=== PATIENT | female | born 1985 | race Caucasian/White ===

== ENCOUNTER 2016-12-10 21:58 | Emergency (ER) | payer MEDICAID ==
[~2016-12-10] VITALS: Ht 152.4 cm; Wt 87.1 kg
[~2016-12-10 21:58] MED LIST: ALBU8.5H INH; CITA20TA9 PO; IBUP-1547 PO; LURA40TA PO; TOPI50TA57 PO; VITA-384 PO
--- OUTSIDE RECORDS SUMMARY | 2016-12-10 22:02 | XMS REPORT | Continuity of Care Document ---
Author Author [facility] Organization [facility] Address Unknown Phone Unavailable Care Team Providers Care Manager Actuarial Name Role Phone TONY HESS DO Primary Care Physician [phone] Insurance Providers Guarantor Margarita Mata Address [address] [place] [address] Email [email or web address] Payer [facility] Policy Number [id number] Subscriber's Name Margarita Mata Relationship 18 Self Effective Date 16 Expiration Date 16 Chief Complaint and Reason for Visit Chief Complaint Neuro Symptoms/Deficits Reason for Visit Migraine Anxiety Seizure disorder Problems Active Problems Medical Problem Onset Date Status Acute sinusitis Unknown Acute Bronchitis Unknown Acute Eustachian tube dysfunction Unknown Acute Eye irritation Unknown Acute Finger pain, right Unknown Acute Headache Unknown Acute Herpes genitalia Unknown Acute Pain, eye, right Unknown Acute Serous otitis media Unknown Acute Toothache Unknown Acute Upper respiratory infection Unknown Acute Wrist sprain Unknown Acute Past Problems Medical Problem Onset Date Anxiety Unknown Common cold Unknown Diarrhea Unknown Finger pain, right Unknown Gastroenteritis Unknown Migraine Unknown Migraine Unknown Pharyngitis Unknown Seizure disorder Unknown Tobacco abuse Unknown Wrist sprain Unknown Medications Current Home Medications Medication Dose Units Route Directions Days Qty Instructions Start Date Albuterol Sulfate (Proair Hfa 90 Mcg/Actuation) 8.5 Gm Hfa.aer.ad 2 Puff Inhalation Every 4 Hours as needed for Shortness Of Air/Wheezing 1 Inhaler Inhaler with spacer 08/03/16 Citalopram Hydrobromide (Citalopram Hbr) 20 Mg Tablet 20 Mg Oral Daily 05/08/16 Ibuprofen 800 Mg Tablet 800 Mg Oral Three Times A Day as needed for Pain 05/23/16 Lurasidone Hcl (Latuda) 40 Mg Tablet 40 Mg Oral Bedtime 10/21/16 Topiramate 50 Mg Tablet 50 Mg Oral Twice A Day 05/08/16 Vitamin C/Biotin (Lzhe-Ouzq-Mwkjr Gummies) 1 Each Tab.chew 2 Tab Oral Daily 10/21/16 Social History Social History Problem Response Recorded Date/Time Onset Date Status Hx Substance Use N REPORTS USING METH IN THE PAST 10/21/2016 8:41pm Not Applicable Not Applicable Hx Alcohol Use No 10/21/2016 8:41pm Not Applicable Not Applicable Tobacco Usage smoke 08/10/2015 12:05am Not Applicable Not Applicable Query Response Start Date Stop Date Smoking Status Current every day smoker Hospital Discharge Instructions No hospital discharge instructions. Plan of Care Discharge Date 10/21/16 10:05pm Disposition 01 DISCHARGED HOME, SELF-CARE Condition at Discharge Improved Instructions/Education Provided Anxiety (ED) Prescriptions See Medication Section Referrals TONY HESS DO Order Date: 1 Week Address: [place] [address] Note: Additional Instructions/Education You have been treated for anxiety, a migraine headache, and possible seizures. Your symptoms improved with this treatment. Your symptoms were most likely related to the anxiety. Follow up with Dr. Rankin as already scheduled. Follow up with your PCM for anxiety and migraines. Care Plan and Goals Physician Care Plan Problem: Anxiety Goal: Follow up with primary care provider Instructions: Take medications and follow care plan as discussed/written Functional Status No functional status results. Allergies, Adverse Reactions, Alerts Allergen Type Severity Reaction Status Last Updated Lamotrigine Allergy Unknown RASH Active 10/21/16 Immunizations Query Response on File Recorded Date/Time Hx Influenza Vaccination Y UNKNOWN 04/02/15 7:34pm Hx Tetanus, Diptheria, Pertussis Y 200904/02/15 7:34pm Hx Influenza Vaccination Y UNKNOWN 04/02/15 7:34pm Hx Tetanus, Diptheria, Pertussis Y 200904/02/15 7:34pm Influenza Vaccine Hx 06/201510/21/16 8:41pm Vital Signs Acute Vital Signs Vital Response Date/Time Temperature (Fahrenheit) 97.9 deg F (96.8 - 99.1) 10/21/2016 10:05pm Temperature (Calculated Celsius) 36.59190 degrees C (36.0 - 37.3) 10/21/2016 10:05pm Pulse Rate (adult) 71 bpm (60 - 100) 10/21/2016 10:05pm Respiratory Rate 16 breaths/min (10 - 20) 10/21/2016 10:05pm O2 Sat by Pulse Oximetry 99 % (90 - 100) 10/21/2016 10:05pm Blood Pressure 98/63 mm Hg 10/21/2016 10:05pm Height (Feet) 5 feet 10/21/2016 7:19pm Height (Inches) 0 inches 10/21/2016 7:19pm Weight (Kilograms) 88.000 kg 10/21/2016 7:19pm Body Mass Index (BMI) 37.0 10/21/2016 7:19pm Results Laboratory Results Test Name Result Units Flags Reference Collection Date/Time Result Date/ Time Comments White Blood Count 12.0 T/MM3 H 4.5-11.0 08/16/2016 11:39pm 08/16/2016 11 :56pm Red Blood Count 4.71 M/MM3 4.00-5.20 08/16/2016 11:39pm 08/16/2016 11: 56pm Hemoglobin 13.5 GM/DL 12-16 08/16/2016 11:39pm 08/16/2016 11:56pm Hematocrit 40.3 % 36-46 08/16/2016 11:39pm 08/16/2016 11:56pm Mean Corpuscular Volume 85.6 UM3 80-100 08/16/2016 11:39pm 08/16/2016 11:56pm Mean Corpuscular Hemoglobin 28.7 UUG 26-34 08/16/2016 11:39pm 2015 11:56pm Mean Corpuscular Hemoglobin Concent 33.5 GM/DL 31-37 08/16/2016 11:39pm 08/16/2016 11:56pm RDW Standard Deviation 44.3 FL 36.9-50.2 08/16/2016 11:39pm 08/16/2016 11:56pm Platelet Count 231 T/MM3 130-400 08/16/2016 11:39pm 08/16/2016 11:56pm Mean Platelet Volume 10.2 UM3 9.4-12.4 08/16/2016 11:39pm 08/16/2016 11 :56pm Neutrophils (%) (Auto) 63.0 % 33-66 08/16/2016 11:39pm 08/16/2016 11: 56pm Lymphocytes (%) (Auto) 30.3 % 23-45 08/16/2016 11:39pm 08/16/2016 11: 56pm Monocytes (%) (Auto) 5.3 % 0-9.0 08/16/2016 11:39pm 08/16/2016 11:56pm Eosinophils (%) (Auto) 0.7 % 0-4 08/16/2016 11:39pm 08/16/2016 11:56pm Basophils (%) (Auto) 0.2 % 0-2 08/16/2016 11:39pm 08/16/2016 11:56pm Immature Granulocyte % (Auto) 0.5 % 0.0-0.5 08/16/2016 11:39pm 2015 11:56pm Absolute Neutrophils (auto) 7.6 T/MM3 1.8-7.7 08/16/2016 11:39pm 2015 11:56pm Absolute Lymphocytes (auto) 3.7 T/MM3 1-4.8 08/16/2016 11:39pm 2015 11:56pm Absolute Monocytes (auto) 0.6 T/MM3 0-0.8 08/16/2016 11:39pm 2015 11:56pm Absolute Eosinophils (auto) 0.1 T/MM3 0-0.5 08/16/2016 11:39pm 2015 11:56pm Absolute Basophils (auto) 0.0 T/MM3 0-0.2 08/16/2016 11:39pm 2015 11:56pm Absolute Immature Granulocyte (auto 0.06 T/MM3 H 0.00-0.03 08/16/2016 11: 39pm 08/16/2016 11:56pm Icterus Index < 2 0-7 08/16/2016 11:39pm 08/17/2016 12:01am Chemistry Specimen Hemolysis < 15 0-25 08/16/2016 11:39pm 08/17/2016 12:01am 0-25: Specimen Exhibited No Hemolysis. Turbidity < 20 0-20 08/16/2016 11:39pm 08/17/2016 12:01am Sodium Level 145 MEQ/L H 134-144 08/16/2016 11:39pm 08/17/2016 12:01am Potassium Level 3.8 MEQ/L 3.6-5 08/16/2016 11:39pm 08/17/2016 12:01am Chloride Level 110 MEQ/L H 98-107 08/16/2016 11:39pm 08/17/2016 12:01am Carbon Dioxide Level 23 MEQ/L 22-30 08/16/2016 11:39pm 08/17/2016 12: 01am Anion Gap 12 MEQ/L 5-15 08/16/2016 11:39pm 08/17/2016 12:01am Blood Urea Nitrogen 10.0 MG/DL 7-17 08/16/2016 11:39pm 08/17/2016 12: 01am Creatinine 1.0 MG/DL 0.7-1.2 08/16/2016 11:39pm 08/17/2016 12:01am BUN/Creatinine Ratio 10 RATIO 6-26 08/16/2016 11:39pm 08/17/2016 12: 01am Glomerular Filtration Rate Calc 64 08/16/2016 11:39pm 08/17/2016 12 :01am Glucose Level 101 MG/DL 65-110 08/16/2016 11:39pm 08/17/2016 12:01am Calculated Osmolality 278 MOSM/KG 261-280 08/16/2016 11:39pm 2015 12:01am Calcium Level 9.5 MG/DL 8.4-10.2 08/16/2016 11:39pm 08/17/2016 12:01am Total Bilirubin 0.30 MG/DL 0.20-1.30 08/16/2016 11:39pm 08/17/2016 12: 01am Alkaline Phosphatase 81 U/L 38-126 08/16/2016 11:39pm 08/17/2016 12: 01am Total Protein 7.4 G/DL 6.3-8.2 08/16/2016 11:39pm 08/17/2016 12:01am Albumin 4.1 G/DL 3.5-5.0 08/16/2016 11:39pm 08/17/2016 12:01am Globulin 3.3 G/DL 2.4-3.6 08/16/2016 11:39pm 08/17/2016 12:01am Albumin/Globulin Ratio 1.2 RATIO 1.1-2.2 08/16/2016 11:39pm 08/17/2016 12:01am Aspartate Amino Transf (AST/SGOT) 17 U/L 14-36 08/16/2016 11:39pm 08/17 12:01am Alanine Aminotransferase (ALT/SGPT) 29 U/L 9-52 08/16/2016 11:39pm 12:01am Lipase 110 U/L 23-300 08/16/2016 11:39pm 08/17/2016 12:01am Urine Collection Type VOIDED-NOT CC-MIDSTR 08/16/2016 11:39pm 08/16 11:56pm Urine Color YELLOW YELLOW 08/16/2016 11:39pm 08/16/2016 11:56pm Urine Turbidity CLEAR CLEAR 08/16/2016 11:39pm 08/16/2016 11:56pm Urine Specific [place] >=1.030 H 1.015-1.025 08/16/2016 11:39pm 2015 11:56pm Urine pH 5.5 5.0-8.0 08/16/2016 11:39pm 08/16/2016 11:56pm Urine Leukocyte Esterase NEGATIVE NEGATIVE 08/16/2016 11:39pm 2015 11:56pm Urine Nitrite NEGATIVE NEGATIVE 08/16/2016 11:39pm 08/16/2016 11: 56pm Urine Protein NEGATIVE NEGATIVE 08/16/2016 11:39pm 08/16/2016 11: 56pm Urine Glucose (UA) NEGATIVE NEGATIVE 08/16/2016 11:39pm 08/16/2016 11 :56pm Urine Ketones NEGATIVE NEGATIVE 08/16/2016 11:39pm 08/16/2016 11: 56pm Urine Urobilinogen 0.2 EU/DL NORMAL 08/16/2016 11:39pm 08/16/2016 11: 56pm Urine Bilirubin NEGATIVE NEGATIVE 08/16/2016 11:39pm 08/16/2016 11: 56pm Urine Blood NEGATIVE NEGATIVE 08/16/2016 11:39pm 08/16/2016 11:56pm Urinalysis Comment MICROSCOPIC NOT IND. 08/16/2016 11:39pm 2015 11:56pm Procedures Procedure Status Date Provider(s) Airway inhalation treatment Completed 08/03/16 Emergency dept visit Completed 08/03/16 PREDNISONE, 10 MG TAB Completed 08/03/16 X-ray exam of abdomen Completed 08/16/16 Comprehen metabolic panel Completed 08/16/16 Urinalysis auto w/o scope Completed 08/16/16 Assay of lipase Completed 08/16/16 Complete cbc w/auto diff wbc Completed 08/16/16 Hydrate iv infusion add-on Completed 08/16/16 Ther/proph/diag inj iv push Completed 08/16/16 Tx/pro/dx inj new drug addon Completed 08/16/16 Emergency dept visit Completed 08/16/16 190179"INJECTION, KETOROLAC TROMETHAMINE, PER 15 MG" Completed 08/16/16 244197"INJECTION, ONDANSETRON HYDROCHLORIDE, PER 1 MG" Completed 08/16/16 [id number]"INFUSION, NORMAL SALINE SOLUTION , 1000 CC" Completed 08/16/16 Encounters Encounter Location Arrival/Admit Date Discharge/Depart Date Attending Provider Departed Emergency Room [facility] 10/21/16 7:19pm 10/21/16 10: 05pm IVAN RO DO Departed Emergency Room [facility] 08/16/16 11:10pm 08/17/16 12: 38am SCOTT MCGHEE MD Departed Emergency Room [facility] 08/03/16 5:13pm 08/03/16 7: 05pm GOGO BENITEZ MD Recent Diagnosis
[2016-12-10 22:16] VITALS: BP 108/70; PULSE 74; TEMP 98; O2SAT 98; Ht 152.4 cm; Wt 87.1 kg
[2016-12-10] MEDS ORDERED: [UNRECOGNIZED DRUG - CODE] TOP (22:21)
[2016-12-10] MEDS ORDERED: KETOROLAC 60mg/2ml INJECTION IM ONE (22:30)
[2016-12-10] MEDS ORDERED: PROCHLORPERAZINE 10mg/2ml INJECTION IM ONE (22:30)
[2016-12-10] MEDS ORDERED: HYDROMORPHONE 2mg/ml INJECTION IM ONE (22:30)
--- NOTE | 2016-12-10 22:30 | ERPDOC ---
Departure Disposition Decision Date: Dec 10, 2016 Disposition Decision Time: 22:31 Disposition: 01 DISCHARGED HOME, SELF-CARE Impression Impression Impression: Primary Impression: Viral upper respiratory illness Additional Impression: Migraine headache Migraine type: unspecified Status migrainosus presence: without status migrainosus Intractability: not intractable Qualified Codes: G43.909 - Migraine, unspecified, not intractable, without status migrainosus Severity: Moderate Condition: Improved Seen By: Physician only Referrals: TONY HESS DO (PCP) Patient Instructions: Upper Respiratory Infection (ED) Problems/Meds/Labs Reviewed?: Yes Medications reviewed and manag: Yes Additional Instructions: You have a viral upper respiratory infection, no antibiotics are needed Use Aleve-D one tablet twice daily +1 [id number]-[id number]-[id number] Aleve tablet twice daily for pain and sinus congestion It may also use Tylenol up to 1000 mg 4 times daily for pain Drink 2 quarts of fluid daily Decrease your smoking and exposure to cigarette smoke as much as possible Follow up care ordered?: Yes Mental Status: Alert Scripts Naproxen Sodium/P-Ephed HCl (Aleve-D Sinus & Cold Caplet) 1 Each Tab.er.12h 1 TAB PO BID for sinus congestion, #20 Prov: GOGO BENITEZ MD 12/10/16 HPI - Cough/URI General Chief Complaint: Cough,Fever,Flu,URI Stated Complaint: LOZADA,EARACHE,PAIN WHEN COUGHS Time Seen by Provider: 22:18 Source: patient, family Exam Limitations: no limitations HPI - Cough/URI Initial Comments Patient has 3 day history of right sinus pain, cough with yellow sputum, and worsening severe right-sided headache with photophobia and nausea. Has used Robitussin one time, this did not help her symptoms so she came to the ER. When asked why she did not use her prescription ibuprofen 800 that she has at home, she stated that it upsets her stomach. Is not other zark-qyb-waiqkbv medications , no decongestants, and has not contacted her primary physician. Occurred At: home Onset/Timing: Rapid Associated Symptoms: fever/chills, headache, nasal congestion, nasal drainage, sinus infection, DENIES: chest pain/soreness, cough, dizziness, earache, facial pain, lightheadedness, muscle aches, shortness of breath, sore throat, wheezing Hx of Similar Symptoms: Yes Allergies: Coded Allergies: lamotrigine (Verified Allergy, Unknown, RASH, 12/10/16) Past History Past Medical History ENMT: dental problems Neurological: migraines, seizures Psychological: bipolar, depression Surgical History General: other Reproductive/: , tubal ligation Family History Family PMH: FOUND: other Vaccines Hx Influenza Vaccination: Yes (UNKNOWN ) Hx Tetanus, Diptheria, Pertuss: Yes (2009) Social History Smoking Status: Current every day smoker Does patient use chewing tobac: No Second Hand Exposure: No Substance Use Type: does not use Alcohol Intake: none Sexuality: male partner Review of Systems Constitutional Constitutional: chills, fatigue, DENIES: anorexia, appetite decrease, appetite increase, dizziness, fever, night sweats, syncope, weakness Eyes General: photophobia ENMT Ears: DENIES: pain Hearing: DENIES: hearing loss, tinnitus Balance: DENIES: vertigo Sinuses: congestion, rhinorrhea Mouth/Throat: DENIES: change in swallowing, change in voice, hoarsness, painful swallowing, sore throat Cardiovascular Cardiac: DENIES: chest pain, dyspnea on exertion Rhythm/Rate: DENIES: irregular beat, palpitations, tachycardia Vascular: DENIES: pedal edema Pulmonary Respiratory: cough, sputum, DENIES: dyspnea, exposure to TB, hyperventilation, last PPD, pleuritic chest pain, pneumonia hx, recent risky activities, tachypnea GI Upper Abdomen: DENIES: dysphagia, heartburn/indigestion, nausea, pain, vomiting Lower Abdomen: DENIES: blood in stool, constipation, diarrhea, pain General: DENIES: burning, dysuria, frequency, pain, urgency Musculoskeletal General: DENIES: cramps, joint pain, joint swelling, pain, weakness Integumentary Skin: DENIES: rash, sores Neurological General: DENIES: headache, numbness, tingling, vertigo, weakness Physical Exam General General Nourishment: well nourished, well developed, appears stated age, no acute distress General Body Habitus: well groomed Vitals and Pain First Documented Vital Signs Date Time Temp Pulse Resp B/P Pulse Ox O2 Delivery O2 Flow Rate FiO2 12/10/16 22:16 98.0 74 17 108/70 98 Room Air Weight: Kilograms: 87.100 Height (feet): 5 Height (inches): 0 Triage Pain Scale: RN VS reviewed by Provider: Yes Normal Exams: Head: Normocephalic w/o trauma Eyes: Pupils are PERRLA w/ EOMI, No scleral icterus, irritation, or foreign bodies noted ENMT (brief) ENMT Brief: FOUND: TM clear, TM good light reflex, ear canals clear, mucosa moist, nasal erythema, nasal exudate, nasal swelling, normal dentition, normal tonsils, NOT FOUND: lesions, petechiae, pharnyx erythema, tonsillar deviation Comments Patient has no tenderness over the sinuses Neck (brief) Neck: FOUND: trachea midline, NOT FOUND: JVD, adenopathy, nuchal rigidity, spasm, tenderness, thyromegaly, tracheal deviation Respiratory (brief) Respiratory: FOUND: clear all cort[place], equal bilaterally, symmetrical, NOT FOUND : rales, tenderness, wheezes Cardiovascular (brief) Cardiac: FOUND: regular rate, regular rhythm, NOT FOUND: click, gallop, murmur , pedal edema Capillary Refill: <2 sec Pulses: all distal extremities, equal, strong Abdomen (brief) Abdominal Brief: FOUND: bowel normo active x4, soft, NOT FOUND: distended, hepatosplenomegaly, tender Lymphatic (brief) Lymphatic Brief: NOT FOUND: adenopathy, lymphedema Musculoskeletal (brief) Musculoskeletal Brief: NOT FOUND: deformity, loss of motion, spasm, tenderness Integumentary (brief) Integumentary Brief: FOUND: dry, pink, warm Neurologic (brief) Neurological Brief: FOUND: CN w/o gross def to obs, gait w/o gross def to obs, motor-no gross deficits, sensory-no gross deficits, NOT FOUND: ataxia Psychiatric (brief) Psychiatric Brief: FOUND: alert, attentive, normal affect, oriented Progress Results/Orders Orders Procedure Category Date Status Time Ketorolac (Toradol) PHA 12/10/16 In Process 22:30 Prochlorperazine PHA 12/10/16 In Process (Compazine) 22:30 Hydromorphone PHA 12/10/16 In Process (Dilaudid) 22:30 Medications Current ED Medications Ketorolac Tromethamine (Toradol) 60 mg O ONCE IM ; Start 12/10/16 at 22:30; Stop 12/10/16 at 22:31 Prochlorperazine Edisylate (Compazine) 10 mg O ONCE IM ; Start 12/10/16 at 22: 30; Stop 12/10/16 at 22:31 Hydromorphone HCl (Dilaudid) 1 mg O ONCE IM ; Start 12/10/16 at 22:30; Stop at 22:31 Progress Progress Patient appears to have a migraine headache secondary to viral upper respiratory infection. Patient given intramuscular medications in the ER for her headache, prescription for Aleve D to use twice daily in addition to one hcpg-qqo-empblif Aleve tablet for both headache as well as sinus congestion, and she is drink at least 2 quarts of fluid daily. GOGO BENITEZ MD Dec 10, 2016 22:30
[2016-12-10] MEDS ORDERED: NAPR1TAB21 PO (22:34)
[2016-12-10] MEDS ORDERED: PROC-14 PO (22:35)
[2016-12-10 23:02] VITALS: RESP 21
--- NOTE | 2016-12-10 23:27 | NUR ---
DEPARTURE PT COLLECTED BELONGINGS AND AMBULATED INDEPENDENTLY TO EXIT WITH SIGNIFICANT OTHER, GAIT STEADY.
== END 2016-12-10 23:27 | disposition home or self-care (01) ==
LOC: ED 21:58
DX: J06.9 Acute upper respiratory infection, unspecified (principal); B97.89 Other viral agents as the cause of diseases classified elsewhere; G43.909 Migraine, unspecified, not intractable, without status migrainosus; F17.200 Nicotine dependence, unspecified, uncomplicated
CPT/HCPCS: 96372; 99283; J0780; J1170; J1885

== ENCOUNTER 2016-12-27 22:28 | Emergency (ER) | payer MEDICAID ==
[~2016-12-27] VITALS: Ht 152.4 cm; Wt 89.1 kg
[~2016-12-27 22:28] MED LIST changes: -IBUP-1547 PO; +NAPR1TAB21 PO; +PROC-14 PO; -VITA-384 PO; +[UNRECOGNIZED DRUG - CODE] TOP
--- OUTSIDE RECORDS SUMMARY | 2016-12-27 22:33 | XMS REPORT | Continuity of Care Document ---
Author Author [facility] Organization [facility] Address Unknown Phone Unavailable Care Team Providers Care Flume Tender Name Role Phone TONY HESS DO Primary Care Physician [phone] Insurance Providers Guarantor GiovanniAzar calderonmijose a Fink Address [address] [phone] Email [email or web address] Payer [facility] Policy Number [id number] Subscriber's Name Margarita Mata Relationship 18 Self Effective Date 16 Expiration Date 16 Chief Complaint and Reason for Visit Chief Complaint Cough,Fever,Flu,URI Reason for Visit [id number] Migraine headache Problems Active Problems Medical Problem Onset Date [...] Unknown Gastroenteritis Unknown Migraine Unknown Migraine Unknown Migraine headache Unknown Pharyngitis Unknown Seizure disorder Unknown Tobacco abuse Unknown Viral upper respiratory illness Unknown Wrist sprain Unknown Medications Current Home Medications Medication Dose Units Route Directions Days Qty Instructions Start Date Albuterol Sulfate (Proair Hfa 90 Mcg/Actuation) 8.5 Gm Hfa.aer.ad 2 Puff Inhalation Every 4 Hours as needed for Shortness Of Air/Wheezing 1 Inhaler Inhaler with spacer 08/03/16 Citalopram Hydrobromide (Citalopram Hbr) 20 Mg Tablet 20 Mg Oral Daily 05/08/16 Lurasidone Hcl (Latuda) 40 Mg Tablet 40 Mg Oral Bedtime 10/21/16 Naproxen Sodium/P-Ephed Hcl (Aleve-D Sinus & Cold Caplet) 1 Each Tab.er.12h 1 Tab Oral Twice A Day for Sinus Congestion 20 12/10/16 Prochlorperazine Maleate (Compazine) 10 Mg Tablet 10 Mg Oral Four Times Daily for Acosta/Naus 30 Tablet 12/10/16 Tolnaftate (Lamisil Af) 113 Gm Powder 1 Dose Topically Daily Topiramate 50 Mg Tablet 50 Mg Oral Twice A Day 05/08/16 Past Home Medications Medication Directions Ordered Status Vitamin C/Biotin (Pgyh-Tdej-Xwquq Gummies) 1 Each Tab.chew, 2 Tab Oral Daily 10/21/16 Discontinued Social History Social History Problem Response Recorded Date/Time Onset Date Status Chewing Tobacco Status No 12/10/2016 10:21pm Not Applicable Not Applicable Hx Substance Use N REPORTS USING METH IN THE PAST 12/10/2016 10:21pm Not Applicable Not Applicable Hx Alcohol Use No 12/10/2016 10:21pm Not Applicable Not Applicable Tobacco Usage smoke 08/10/2015 12:05am Not Applicable Not Applicable Query Response Start Date Stop Date Smoking Status Current every day smoker Hospital Discharge Instructions No hospital discharge instructions. Plan of Care Discharge Date 12/10/16 11:27pm Disposition 01 DISCHARGED HOME, SELF-CARE Condition at Discharge Improved Instructions/Education Provided Upper Respiratory Infection (ED) Prescriptions See Medication Section Referrals TONY HESS Address: [address] [address] Additional Instructions/Education You have a viral upper respiratory infection , no antibiotics are needed Use Aleve-D one tablet twice daily +1 tawm-spn-wcwndei Aleve tablet twice daily for pain and sinus congestion It may also use Tylenol up to 1000 mg 4 times daily for pain Compazine 10 mg, one tablet up to 4 times daily as needed for headache or nausea Drink 2 quarts of fluid daily Decrease your smoking and exposure to cigarette smoke as much as possible Care Plan and Goals Physician Care Plan Problem: Viral URI, sinus pain, migraine headache Goal: Follow up with primary care provider Instructions: Take medications and follow care plan as discussed/written You have a viral upper respiratory infection, no antibiotics are needed Use Aleve-D one tablet twice daily +1 qyri-xeh-tofrwdq Aleve tablet twice daily for pain and sinus congestion It may also use Tylenol up to 1000 mg 4 times daily for pain Compazine 10 mg, one tablet up to 4 times daily as needed for headache or nausea Drink 2 quarts of fluid daily Decrease your smoking and exposure to cigarette smoke as much as possible Functional Status No functional status results. Allergies, Adverse Reactions, Alerts Allergen Type Severity Reaction Status Last Updated Lamotrigine Allergy Unknown RASH Active 12/10/16 Immunizations Query Response on File Recorded Date/Time Hx Influenza Vaccination Y UNKNOWN 04/02/15 7:34pm Hx Tetanus, Diptheria, Pertussis Y 200904/02/15 7:34pm Hx Influenza Vaccination Y UNKNOWN 04/02/15 7:34pm Hx Tetanus, Diptheria, Pertussis Y 200904/02/15 7:34pm Influenza Vaccine Hx 06/201512/10/16 10:21pm Vital Signs Acute Vital Signs Vital Response Date/Time Temperature (Fahrenheit) 98.0 deg F (96.8 - 99.1) 12/10/2016 10:16pm Temperature (Calculated Celsius) 36.28306 degrees C (36.0 - 37.3) 12/10/2016 10:16pm Pulse Rate (adult) 74 bpm (60 - 100) 12/10/2016 10:16pm Respiratory Rate 21 breaths/min (10 - 20) 12/10/2016 11:02pm O2 Sat by Pulse Oximetry 98 % (90 - 100) 12/10/2016 10:16pm Blood Pressure 108/70 mm Hg 12/10/2016 10:16pm Height (Feet) 5 feet 12/10/2016 10:16pm Height (Inches) 0 inches 12/10/2016 10:16pm Weight (Kilograms) 87.100 kg 12/10/2016 10:16pm Body Mass Index (BMI) 37.0 12/10/2016 10:16pm Results No known relevant diagnostic tests, laboratory data and/or discharge summary. Procedures Procedure Status Date Provider(s) Ther/proph/diag inj sc/im Completed 10/21/16 Ther/proph/diag inj sc/im Completed 10/21/16 Ther/proph/diag inj sc/im Completed 10/21/16 Emergency dept visit Completed 10/21/16 [id number]"INJECTION, KETOROLAC TROMETHAMINE, PER 15 MG" Completed 10/21/16 136564"INJECTION, LORAZEPAM, 2 MG" Completed 10/21/16 [id number] SELF ADMINISTERED) Completed 10/21/16 Mri brain stem w/o & w/dye Completed 10/31/16 GADAVIST 10ML SDV - Contrast,Gadavist 10ml Completed 10/31/16 Eeg awake and drowsy Completed 11/02/16 Encounters Encounter Location Arrival/Admit Date Discharge/Depart Date Attending Provider Departed Emergency Room [facility] 12/10/16 9:58pm 12/10/16 11: 27pm GOGO BENITEZ MD Registered Clinic [facility] 11/02/16 10:53am ANNA MARIE BYRD MD Registered Clinic [facility] 10/31/16 7:29am ANNA MARIE BYRD MD Departed Emergency Room [facility] 10/21/16 7:19pm 10/21/16 10: 05pm IVAN RO DO Recent Diagnosis
[2016-12-27 22:45] VITALS: Ht 152.4 cm; Wt 89.1 kg
[2016-12-27] MEDS ORDERED: IBUP-1547 PO (22:52)
--- NOTE | 2016-12-27 23:06 | ERPDOC ---
Departure Disposition Decision Date: Dec 27, 2016 Disposition Decision Time: 23:50 Disposition: 01 DISCHARGED HOME, SELF-CARE Impression Impression Impression: Primary Impression: Headache Qualified Codes: R51 - Headache Severity: Moderate Condition: Stable Seen By: Mid-level only Referrals: TONY HESS DO (PCP) Patient Instructions: Acute Headache (ED) Problems/Meds/Labs Reviewed?: Yes Medications reviewed and manag: Yes Additional Instructions: Go home and rest tonight. May repeat with Tylenol and/or Motrin in the morning. If you have not improved then please follow up with your primary care provider. Make sure you are drinking plenty of fluids tomorrow as well. Follow up care ordered?: Yes Mental Status: Alert, Oriented HPI - Headache General Chief Complaint: Headache Stated Complaint: HEADACHE,LOW HEART RATE Time Seen by Provider: 22:48 Source: patient Exam Limitations: no limitations HPI - Headache Initial Comments She was laying in the bathtub tonight and had onset of chills and headache. She has had the headache since then. Has not taken anything for it prior to coming to ER. Pain is on both sides of her temples and is constant. She denies any vomiting or fevers. Denies any blurred vision. Occurred At: home Onset: Rapid Duration: other (At 1999) Severity/Quality: moderate, constant, pressure Location: temporal (bilateral) Prior Headaches/Recent Trauma: no recent headache/trauma Associated Symptoms: facial pain, fever/chills (chills), DENIES: confusion, fatigue, flushing, loss of consciousness, nasal congestion, nasal drainage, nausea/vomiting, numbness in legs/feet, rash, seizures, sinus infection, stiff neck, vision changes, weakness Hx of Similar Symptoms: Yes Allergies: Coded Allergies: lamotrigine (Verified Allergy, Unknown, RASH, 12/27/16) Past History Past Medical History ENMT: dental problems Neurological: migraines, seizures Psychological: bipolar, depression Surgical History General: other Reproductive/: , tubal ligation Family History Family PMH: FOUND: other Vaccines Hx Influenza Vaccination: Yes (UNKNOWN ) Hx Tetanus, Diptheria, Pertuss: Yes (2009) Social History Does patient use chewing tobac: No Second Hand Exposure: No Substance Use Type: does not use Alcohol Intake: none Sexuality: male partner Review of Systems Constitutional Constitutional: chills, DENIES: appetite decrease, dizziness, fatigue, fever, weakness ENMT Ears: DENIES: drainage, pain Sinuses: DENIES: congestion, rhinorrhea Mouth/Throat: DENIES: painful swallowing, scratchy throat, sore throat Cardiovascular Cardiac: DENIES: chest pain, dyspnea on exertion, orthopnea Rhythm/Rate: DENIES: irregular beat, palpitations Pulmonary Respiratory: DENIES: cough, dyspnea, sputum, tachypnea GI Upper Abdomen: DENIES: nausea, pain, vomiting Lower Abdomen: DENIES: constipation, diarrhea, pain Integumentary Skin: DENIES: rash Neurological General: DENIES: headache, numbness, tingling, weakness Physical Exam General General Nourishment: well nourished, well developed, appears stated age, no acute distress, adult General Body Habitus: well groomed Vitals and Pain First Documented Vital Signs Date Time Temp Pulse Resp B/P Pulse Ox O2 Delivery O2 Flow Rate FiO2 12/27/16 22:45 98.5 64 16 116/70 98 Room Air Weight: Kilograms: 89.100 Height (feet): 5 Height (inches): 0 Triage Pain Scale: RN VS reviewed by Provider: Yes Normal Exams: Eyes: Pupils are PERRLA w/ EOMI, No scleral icterus, irritation, or foreign bodies noted ENMT: No facial trauma, nasal exudates, pharyngeal erythema, or exudates are noted Neck: Full range of motion, without adenopathy, JVD, bruits or thyromegaly Chest/Resp: Clear all cortez, with good airflow, and symmetry bilaterally CV: Regular rate and rhythm, without murmur or gallop, Pulses 2+ all extremities, capillary refill, <2 seconds all ext., no pedal edema noted Abdomen: Bowel sounds positive, soft, non-tender, non-distended, no hepatosplenomegaly, masses or bruits noted Lymphatic: No lymphadenopathy, or lymphedema noted Integumentary: No rashes, hives, or bruising noted Neurologic: Patient is alert, and oriented, cranial nerves, motor/sensory/ cerebellar, exams w/o gross deficits, to observation Psychiatric: Patient exhibits, appropriate attention, emotion and affect ENMT (brief) ENMT Brief: FOUND: TM clear, TM good light reflex, ear canals clear, mucosa moist, normal tonsils, NOT FOUND: lesions, nasal erythema, nasal exudate, nasal swelling, normal dentition (she has no teeth, gums are normal in appearance), petechiae, pharnyx erythema, tonsillar deviation Differential Diagnoses Considering: Headache, Headache - Migraine, Headache - Tension/Muscle, Sinusitis - Sphenoid, Sinusitis - Maxillary, Sinusitis - Frontal, Viral Syndrome Progress Results/Orders Orders Procedure Category Date Status Time Ketorolac (Toradol) PHA 12/27/16 Complete 23:15 Orphenadrine (Norflex) PHA 12/27/16 Complete 23:15 Medications Current ED Medications Ketorolac Tromethamine (Toradol) 60 mg O ONCE IM Last administered on t 23:17; Start 12/27/16 at 23:15; Stop 12/27/16 at 23:16; Status DC Orphenadrine Citrate (Norflex) 60 mg O ONCE IM Last administered on 12/27/16t 23:17; Start 12/27/16 at 23:15; Stop 12/27/16 at 23:16; Status DC Progress Progress She does feel much improved after Norflex and Toradol. Is ready to go home. I do think that this may be onset of viral illness as she states that she was chilled in the warm bath water. Will have her rest and drink fluids. May repeat OTC medications as needed. Follow up with PCP if not improving. BARBARA MOBLEY APRN Dec 27, 2016 23:06
[2016-12-27] MEDS ORDERED: KETOROLAC 60mg/2ml INJECTION IM ONE (23:15)
[2016-12-27] MEDS ORDERED: ORPHENADRINE 60mg/2ml INJECTION IM ONE (23:15)
[2016-12-28 00:30] VITALS: BP 109/69; PULSE 85; RESP 16; TEMP 98.5; O2SAT 98
== END 2016-12-28 00:30 | disposition home or self-care (01) ==
LOC: ED 22:28
DX: R51 Headache (principal); R68.83 Chills (without fever)
CPT/HCPCS: 96372; 99283; J1885; J2360

== ENCOUNTER 2017-01-09 22:45 | Emergency (ER) | payer MEDICAID ==
[~2017-01-09] VITALS: Ht 152.4 cm; Wt 90.6 kg
[~2017-01-09 22:45] MED LIST changes: +IBUP-1547 PO; -NAPR1TAB21 PO; -PROC-14 PO; +TOPI50TA25 PO; -TOPI50TA57 PO
--- OUTSIDE RECORDS SUMMARY | 2017-01-09 22:48 | XMS REPORT | Continuity of Care Document ---
Author Author [facility] Organization [facility] Address Unknown Phone Unavailable Care Team Providers Care Thermal Technician Name Role Phone TONY HESS DO Primary Care Physician [phone] Insurance Providers Guarantor Margarita Mata Address [address] [id number] Email [email or web address] Payer [facility] Policy Number [id number] Subscriber's Name Margarita Mata Relationship 18 Self Effective Date 16 Expiration Date 17 Advance Directives Directive Response Recorded Date/Time Advanced Directives Type None 12/27/16 10:45pm Chief Complaint and Reason for Visit Chief Complaint Headache Reason for Visit Headache Problems Active Problems Medical Problem Onset Date Status Acute sinusitis Unknown Acute Bronchitis Unknown Acute Eustachian tube dysfunction Unknown Acute Eye irritation Unknown Acute Finger pain, right Unknown Acute Herpes genitalia Unknown Acute Pain, eye, right Unknown Acute Serous otitis media Unknown Acute Toothache Unknown Acute Upper respiratory infection Unknown Acute Wrist sprain Unknown Acute Past Problems Medical Problem Onset Date Anxiety Unknown Common cold Unknown Diarrhea Unknown Finger pain, right Unknown Gastroenteritis Unknown Headache Unknown Migraine Unknown Migraine Unknown Migraine headache [...] Oral Daily 05/08/16 Ibuprofen 800 Mg Tablet 1 Tab Oral Every 8 Hours as needed for Pain 12/27/16 Lurasidone Hcl (Latuda) 40 Mg Tablet 40 Mg Oral Bedtime 10/21/16 Tolnaftate (Lamisil Af) 113 Gm Powder 1 Dose Topically Daily Topiramate 50 Mg Tablet 50 Mg Oral Twice A Day 05/08/16 Past Home Medications Medication Directions Ordered Status Naproxen Sodium/P-Ephed Hcl (Aleve-D Sinus & Cold Caplet) 1 Each Tab.er.12h, 1 Tab Oral Twice A Day for Sinus Congestion 12/10/16 Discontinued Prochlorperazine Maleate (Compazine) 10 Mg Tablet, 10 Mg Oral Four Times Daily for Acosta/Naus 12/10/16 Discontinued Vitamin C/Biotin (Rnjl-Avot-Mcsqn Gummies) 1 Each Tab.chew, 2 Tab Oral Daily 10/21/16 Discontinued Social History Social History Problem Response Recorded Date/Time Onset Date Status Hx Substance Use N REPORTS USING METH IN THE PAST 12/27/2016 10:48pm Not Applicable Not Applicable Hx Alcohol Use No 12/27/2016 10:48pm Not Applicable Not Applicable Tobacco Usage smoke 08/10/2015 12:05am Not Applicable Not Applicable Query Response Start Date Stop Date Smoking Status Current every day smoker Hospital Discharge Instructions No hospital discharge instructions. Plan of Care Discharge Date 12/28/16 12:30am Disposition 01 DISCHARGED HOME, SELF-CARE Condition at Discharge Stable Instructions/Education Provided Acute Headache (ED) Prescriptions See Medication Section Referrals TONY HESS Address: [address] [address] Additional Instructions/Education Go home and rest tonight. May repeat with Tylenol and/or Motrin in the morning. If you have not improved then please follow up with your primary care provider. Make sure you are drinking plenty of fluids tomorrow as well. Care Plan and Goals Physician Care Plan Problem:Headache Goal: Follow up with primary care provider Instructions: Take medications and follow care plan as discussed/written Functional Status No functional status results. Allergies, Adverse Reactions, Alerts Allergen Type Severity Reaction Status Last Updated Lamotrigine Allergy Unknown RASH Active 12/27/16 Immunizations Query Response on File Recorded Date/Time Hx Influenza Vaccination Y UNKNOWN 04/02/15 7:34pm Hx Tetanus, Diptheria, Pertussis Y 200904/02/15 7:34pm Hx Influenza Vaccination Y UNKNOWN 04/02/15 7:34pm Hx Tetanus, Diptheria, Pertussis Y 200904/02/15 7:34pm Influenza Vaccine Hx 06/201512/27/16 10:48pm Vital Signs Acute Vital Signs Vital Response Date/Time Temperature (Fahrenheit) 98.5 deg F (96.8 - 99.1) 12/28/2016 12:30am Temperature (Calculated Celsius) 36.56153 degrees C (36.0 - 37.3) 12/28/2016 12:30am Pulse Rate (adult) 85 bpm (60 - 100) 12/28/2016 12:30am Respiratory Rate 16 breaths/min (10 - 20) 12/28/2016 12:30am O2 Sat by Pulse Oximetry 98 % (90 - 100) 12/28/2016 12:30am Blood Pressure 109/69 mm Hg 12/28/2016 12:30am Height (Feet) 5 feet 12/27/2016 10:45pm Height (Inches) 0 inches 12/27/2016 10:45pm Weight (Kilograms) 89.100 kg 12/27/2016 10:45pm Body Mass Index (BMI) 38.0 12/27/2016 10:45pm Results No known relevant diagnostic tests, laboratory data and/or discharge summary. Procedures Procedure Status Date Provider(s) Ther/proph/diag inj sc/im Completed 10/21/16 Ther/proph/diag inj sc/im Completed 10/21/16 Ther/proph/diag inj sc/im Completed 10/21/16 Emergency dept visit Completed 10/21/16 [id number]"INJECTION, KETOROLAC TROMETHAMINE, PER 15 MG" Completed 10/21/16 [id number]"INJECTION, LORAZEPAM, 2 MG" Completed 10/21/16 [id number] SELF ADMINISTERED) Completed 10/21/16 Mri brain stem w/o & w/dye Completed 10/31/16 GADAVIST 10ML SDV - Contrast,Gadavist 10ml Completed 10/31/16 Eeg awake and drowsy Completed 11/02/16 Ther/proph/diag inj sc/im Completed 12/10/16 Ther/proph/diag inj sc/im Completed 12/10/16 Emergency dept visit Completed 12/10/16 [id number]"INJECTION, PROCHLORPERAZINE, UP TO 10 MG" Completed 12/10/16998854"INJECTION, HYDROMORPHONE, UP TO 4 MG" Completed 12/10/16978918"INJECTION, KETOROLAC TROMETHAMINE, PER 15 MG" Completed 12/10/16 Encounters Encounter Location Arrival/Admit Date Discharge/Depart Date Attending Provider Departed Emergency Room [facility] 12/27/16 10:28pm 12/28/16 12: 30am IVAN RO DO Departed Emergency Room [facility] 12/10/16 9:58pm 12/10/16 11: 27pm GOGO BENITEZ MD Registered Clinic [facility] 11/02/16 10:53am ANNA MARIE BYRD MD Registered [facility] 10/31/16 7:29am ANNA MARIE BYRD MD Departed Emergency Room [facility] 10/21/16 7:19pm 10/21/16 10: 05pm IVAN RO DO Recent Diagnosis
[2017-01-10] MEDS ORDERED: NORMAL SALINE 1,000 ML IV ONE
[2017-01-10 00:32] VITALS: Ht 152.4 cm; Wt 90.6 kg
[2017-01-10 00:35] LABS: BLOOD, URINE NEGATIVE (NEGATIVE); COLOR,URINE YELLOW (YELLOW); LEUKOCYTE ESTERASE ,URINE NEGATIVE (NEGATIVE); NITRITE,URINE NEGATIVE (NEGATIVE); UROBILINOGEN,URINE 0.2 EU/DL (NORMAL)
[2017-01-10 00:45] LABS: BASOPHILS % (AUTO) 0.2 % (0-2); EOSINOPHILS # (AUTO) 0.2 T/MM3 (0-0.5); EOSINOPHILS % (AUTO) 1.3 % (0-4); HCT - HEMATOCRIT 42.6 % (36-46); HGB - HEMOGLOBIN 14.3 GM/DL (12-16); IMMATURE GRANULOCYTE # (AUTO) 0.04 T/MM3 (0.00-0.03); IMMATURE GRANULOCYTE % (AUTO) 0.3 % (0.0-0.5); LYMPHOCYTES # (AUTO) 3.6 T/MM3 (1-4.8); LYMPHOCYTES % (AUTO) 29.1 % (23-45); MEAN CORPUSCULAR HGB CONC(MCHC 33.6 GM/DL (31-37); MEAN CORPUSCULAR VOLUME 86.4 UM3 (80-100); MEAN PLATELET VOLUME 10.9 UM3 (9.4-12.4); MONOCYTES # (AUTO) 0.7 T/MM3 (0-0.8); MONOCYTES % (AUTO) 5.5 % (0-9.0); NEUTROPHILS #(AUTO)-ABSOLUTE 7.9 T/MM3 (1.8-7.7); NEUTROPHILS % (AUTO) 63.6 % (33-66); RED BLOOD COUNT 4.93 M/MM3 (4.00-5.20); WBC - WHITE BLOOD COUNT 12.5 T/MM3 (4.5-11.0)
--- NOTE | 2017-01-10 00:53 | NUR ---
PELVIC EXAM DONE BY DR OLIVAREZ AT THIS TIME, NURSE PRESENT THROUGHOUT EXAM PT TOLERATES.
[2017-01-10 00:54] LABS: ALBUMIN/GLOBULIN RATIO 1.2 RATIO (1.1-2.2); ALKALINE PHOSPHATASE 98 U/L (38-126); ALT (SGPT) 30 U/L (9-52); ANION GAP 14 MEQ/L (5-15); AST (SGOT) 24 U/L (14-36); BUN/CREATININE RATIO 17 RATIO (6-26); CALCIUM 9.2 MG/DL (8.4-10.2); CHLORIDE 110 MEQ/L (98-107); CO2 - CARBON DIOXIDE 22 MEQ/L (22-30); CREATININE 0.9 MG/DL (0.7-1.2); GLOMERULAR FILTRATION RATE 72; GLUCOSE 91 MG/DL (65-110); LIPASE 119 U/L (23-300); POTASSIUM 3.8 MEQ/L (3.6-5); SODIUM 146 MEQ/L (134-144); TOTAL PROTEIN 7.3 G/DL (6.3-8.2)
[2017-01-10] MEDS ORDERED: ONDANSETRON 4mg/2ml INJECTION IV ONE (01:00)
[2017-01-10] MEDS ORDERED: MORPHINE SULFATE 4 MG SYRINGE IV ONE (01:00)
--- NOTE | 2017-01-10 01:17 | NUR ---
RADIOLOGY ULTRASOUND IN ROOM AT THIS TIME.
--- NOTE | 2017-01-10 01:58 | NUR ---
STATUS PT DENIES ANY PAIN OR NAUSEA AT THIS TIME.
[2017-01-10] MEDS ORDERED: IOHEXOL 300 MG/ML 100ml INJECTION ONE (03:06)
[2017-01-10] MEDS ORDERED: SALINE FLUSH 10ml SYRINGE ONE (03:06)
[2017-01-10] MEDS ORDERED: NORMAL SALINE 100 ML ONE (03:06)
--- NOTE | 2017-01-10 03:10 | NUR ---
RADIOLOGY PT LEAVES WITH IMAGING STAFF AT THIS TIME.
--- NOTE | 2017-01-10 03:28 | NUR ---
RETURN PT RETURNS TO ROOM.
[2017-01-10] MEDS ORDERED: ONDA4TAB7 PO (04:17)
[2017-01-10] MEDS ORDERED: NAPR500T PO (04:17)
[2017-01-10] MEDS ORDERED: HYDR-4246 PO (04:17)
--- NOTE | 2017-01-10 04:17 | ERPDOC ---
Departure Disposition Decision Date: Jan 10, 2017 Disposition Decision Time: 04:00 Disposition: 01 DISCHARGED HOME, SELF-CARE Impression Impression Impression: Primary Impression: UNSPECIFIED OVARIAN CYST, LEFT SIDE Severity: Mild Condition: Improved Seen By: Physician only Referrals: TONY HESS DO (PCP) 2 Days Patient Instructions: Ovarian Cyst (DC) Problems/Meds/Labs Reviewed?: Yes Medications reviewed and manag: Yes Follow up care ordered?: Yes Mental Status: Alert, Oriented Scripts Naproxen (Naprosyn) 500 Mg Tablet 1 TAB PO BID Y for PAIN for 10 Days, #20 TAB 0 Refills Prov: FRANCISCO OLIVAREZ DO 01/10/17 Ondansetron (Zofran Odt) 4 Mg Tab.rapdis 4 MG PO Q4HR Y for NAUSEA &/OR VOMITING for 3 Days, #18 TAB 0 Refills Prov: FRANCISCO OLIVAREZ DO 01/10/17 Hydrocodone/Acetaminophen ([place] 5-325 Tablet) 5-325 Tablet 1 TAB PO Q4HR Y for PAIN for 3 Days, #18 TAB 0 Refills Prov: FRANCISCO OLIVAREZ DO 01/10/17 HPI - Abdominal Pain General Chief Complaint: Abdominal Pain Stated Complaint: ABD/OVARY PAIN Time Seen by Provider: 23:38 Source: patient History/Exam Limitations: no limitations HPI - Abdominal Pain Initial Comments 31-year-old female presents to the emergency department with a chief complaint of left sided pelvic pain. Patient noted onset of symptoms earlier today. Symptoms have been persistent in nature since onset. She denies any trauma, travel, poorly prepared food or recent antibiotic use. Patient describes the pain as sharp. Pain is moderate. There is no radiation. Symptoms have been persistent in nature since onset. She does not note any exacerbating or remitting factors. There are no other complaints or associated symptoms. Patient denies any pelvic symptoms such as discharge or concern for STD. Occurred At: home Onset: Gradual Allergies: Coded Allergies: NKDA (Verified Allergy, Unknown, 01/09/17) Past History Past Medical History ENMT: dental problems Neurological: migraines, seizures Psychological: bipolar, depression Surgical History General: other Reproductive/: , tubal ligation Family History Family History: Negative Family PMH: FOUND: other Vaccines Hx Influenza Vaccination: Yes (UNKNOWN ) Hx Tetanus, Diptheria, Pertuss: Yes (2009) Social History Smoking Status: Never smoker Does patient use chewing tobac: No Second Hand Exposure: No Substance Use Type: does not use Alcohol Intake: none Sexuality: male partner Review of Systems Constitutional Constitutional: DENIES: chills, fever Eyes General: DENIES: erythema, exudate Lids/Accessories: DENIES: erythema, swelling Vision: DENIES: acuity, blurring ENMT Ears: DENIES: drainage, erythema Hearing: DENIES: hearing loss Balance: DENIES: ataxia, falling to one side Sinuses: DENIES: congestion, pain Nose: DENIES: nosebleeds, pain Mouth/Throat: DENIES: painful swallowing, sore throat Teeth: DENIES: pain Jaw: DENIES: pain Cardiovascular Cardiac: DENIES: chest pain, dyspnea on exertion Rhythm/Rate: DENIES: irregular beat, palpitations Vascular: DENIES: pedal edema, unilateral swelling Pulmonary Respiratory: DENIES: cough, dyspnea, pleuritic chest pain, sputum GI Upper Abdomen: DENIES: nausea, pain, vomiting Lower Abdomen: DENIES: diarrhea, pain General: DENIES: dysuria, frequency Musculoskeletal General: DENIES: joint pain, tenderness Integumentary Skin: DENIES: itching, rash Neurological General: DENIES: headache, numbness, weakness Psychiatric Psychiatric: DENIES: emotional instability, suicidal ideation/attempt Endocrine Endocrine: DENIES: polydipsia, polyphagia Hematologic/Lymphatic Hematologic/Lymphatic: DENIES: frequent nosebleeds, lymphadenopathy Allergic/Immunological Allergic/Immunoligical: DENIES: allergic reactions, hives Physical Exam General General Nourishment: well nourished, well developed, appears stated age, no acute distress, adult General Body Habitus: well groomed Vitals and Pain First Documented Vital Signs Date Time Temp Pulse Resp B/P Pulse Ox O2 Delivery O2 Flow Rate FiO2 01/10/17 00:00 76 92/53 98 Room Air 01/10/17 00:32 98.0 16 Weight: Kilograms: 90.600 Height (feet): 5 Height (inches): 0 Triage Pain Scale: RN VS reviewed by Provider: Yes Normal Exams: Head: Normocephalic w/o trauma Eyes: Pupils are PERRLA w/ EOMI, No scleral icterus, irritation, or foreign bodies noted ENMT: No facial trauma, nasal exudates, pharyngeal erythema, or exudates are noted Dental: No fractured, loose, or missing teeth noted Neck: Full range of motion, without adenopathy, JVD, bruits or thyromegaly Chest/Resp: Clear all cortez, with good airflow, and symmetry bilaterally CV: Regular rate and rhythm, without murmur or gallop, Pulses 2+ all extremities, capillary refill, <2 seconds all ext., no pedal edema noted Abdomen: Bowel sounds positive, soft, non-tender, non-distended, no hepatosplenomegaly, masses or bruits noted Lymphatic: No lymphadenopathy, or lymphedema noted Musculoskeletal: No tenderness, or deformity noted, good range of motion, all extremities Integumentary: No rashes, hives, or bruising noted, hair and nails, without abnormality Neurologic: Patient is alert, and oriented, cranial nerves, motor/sensory/ cerebellar, exams w/o gross deficits, to observation Psychiatric: Patient exhibits, appropriate attention, emotion and affect (brief) Comments Pelvic exam - normal external exam. Cervical os is closed. No CMT. No adnexal masses. No right-sided tenderness. + L adenexal tenderness. Normal uterus. No vaginal bleeding or abnormal discharge. Differential Diagnoses Considering: Bowel Obstruction, Constipation, IBS, Ileus, Ovarian Cyst Progress Results/Orders Orders Procedure Category Date Status Time Cbc W/Auto LAB 01/09/17 Complete Diff-Reflex Manual Cmp - Comprehensive LAB 01/09/17 Complete Metabolic Lipase LAB 01/09/17 Complete Ua, Dip Wreflex LAB 01/09/17 Complete Microsc & [place]ucker 23:46 LAB 01/09/17 Complete Qualitative, Urine 23:46 Normal Saline (Normal PHA 01/10/17 Complete Saline Iv) 00:00 Microscopic Exam (Wet PARESH 01/10/17 Complete Prep-Loren 00:54 Gc - Chlamydia Pcr LAB 01/10/17 Complete 00:54 Genital Culture PARESH 01/10/17 In Process W/Gram Stain 00:54 Ondansetron Inj PHA 01/10/17 Complete (Zofran) 01:00 Morphine Sulfate PHA 01/10/17 Complete (Morphine) 01:00 Us Pelvic Non Ob US 01/10/17 Taken W/Trans Vag 00:37 Ct Abd/Pelvis CT 01/10/17 Logged W/Contrast Only 02:17 Iohexol (Omnipaque) PHA 01/10/17 Complete 03:06 Normal Saline (Ns) PHA 01/10/17 Complete 03:06 Saline Flush (Iv PHA 01/10/17 Complete Flush) 03:06 Lab Results Laboratory Tests Test 01/10/17 00:24 01/10/17 00:54 White Blood Count 12.5T/MM3 Red Blood Count 4.93M/MM3 Hemoglobin 14.3GM/DL Hematocrit 42.6% Mean Corpuscular Volume 86.4UM3 Mean Corpuscular Hemoglobin 29.0UUG Mean Corpuscular Hemoglobin Concent 33.6GM/DL RDW Standard Deviation 41.8FL Platelet Count 126T/MM3 Mean Platelet Volume 10.9UM3 Immature Granulocyte % (Auto) 0.3% Neutrophils (%) (Auto) 63.6% Lymphocytes (%) (Auto) 29.1% Monocytes (%) (Auto) 5.5% Eosinophils (%) (Auto) 1.3% Basophils (%) (Auto) 0.2% Absolute Immature Granulocyte (auto 0.04T/MM3 Absolute Neutrophils (auto) 7.9T/MM3 Absolute Lymphocytes (auto) 3.6T/MM3 Absolute Monocytes (auto) 0.7T/MM3 Absolute Eosinophils (auto) 0.2T/MM3 Absolute Basophils (auto) 0.0T/MM3 Urine Collection Type Cleancatch-midstream Urine Color Yellow Urine Turbidity Sl cloudy Urine pH 5.0 Urine Specific [place] >=1.030 Urine Protein Negative Urine Glucose (UA) Negative Urine Ketones Negative Urine Blood Negative Urine Nitrite Negative Urine Bilirubin Negative Urine Urobilinogen 0.2EU/DL Urine Leukocyte Esterase Negative Urinalysis Comment Microscopic not ind. Urine Test Negative Turbidity < 20 Sodium Level 146MEQ/L Potassium Level 3.8MEQ/L Chloride Level 110MEQ/L Carbon Dioxide Level 22MEQ/L Anion Gap 14MEQ/L Blood Urea Nitrogen 15.0MG/DL Creatinine 0.9MG/DL Glomerular Filtration Rate Calc 72 BUN/Creatinine Ratio 17RATIO Glucose Level 91MG/DL Calculated Osmolality 282MOSM/KG Calcium Level 9.2MG/DL Total Bilirubin 0.40MG/DL Icterus Index < 2 Aspartate Amino Transf (AST/SGOT) 24U/L Alanine Aminotransferase (ALT/SGPT) 30U/L Alkaline Phosphatase 98U/L Total Protein 7.3G/DL Albumin 4.0G/DL Globulin 3.3G/DL Albumin/Globulin Ratio 1.2RATIO Lipase 119U/L Chemistry Specimen Hemolysis 27 Chlamydia trachomatis DNA (PCR) Negative N. gonorrhoeae DNA Specimen Source Cervical/vaginal Neisseria gonorrhoeae DNA (PCR) Negative Medications Current ED Medications Sodium Chloride (Normal Saline IV) 1,000 ml @ 999 mls/hr Q1H1M ONCE IV Last administered on 01/10/17 00:46; Start 01/10/17 at 00:00; Stop 01/10/17 at 01:00 ; Status DC Ondansetron HCl (Zofran) 4 mg O ONCE IV Last administered on 01/10/17 01:03; Start 01/10/17 at 01:00; Stop 01/10/17 at 01:01; Status DC Morphine Sulfate (Morphine) 4 mg O ONCE IV Last administered on 01/10/17 01: 04; Start 01/10/17 at 01:00; Stop 01/10/17 at 01:01; Status DC Iohexol 1 bottle 1 bottle STK-MED ONCE .ROUTE ; Start 01/10/17 at 03:06; Stop at 03:07; Status DC Sodium Chloride (NS) 100 ml @ As Directed STK-MED ONCE .ROUTE ; Start 01/10/17 at 03:06; Stop 01/10/17 at 03:07; Status DC Sodium Chloride (Iv Flush) 10 ml STK-MED ONCE .ROUTE ; Start 01/10/17 at 03:06; Stop 01/10/17 at 03:07; Status DC Progress Progress Labs / imaging were discussed in detail with the patient and family and questions are answered. Patient is given IV hydration. Patient is given analgesic pain medication with improvement of symptoms. Patient is discharged home in improved condition. She is to follow up as instructed. Patient is to return to the emergency Department if her condition worsens or changes in any manner. Patient is in agreement with the current plan of management. She is to follow up as instructed. Prescription for [place], and Naprosyn, and Zofran is provided. CT CT : CT: Abd/Pelvis IV contrast Interpretation: Abnormal, Faxed Report (17 mm L ovarian cyst otherwise no acute processes. ) Ultrasound US : Ultrasound: Pelvis US Interpretation: Normal, Faxed Report FRANCISCO OLIVAREZ DO Jan 10, 2017 04:17
[2017-01-10 04:30] VITALS: BP 107/58; PULSE 70; RESP 16; TEMP 98; O2SAT 98
--- NOTE | 2017-01-10 04:30 | NUR ---
DEPART PT IS GIVEN DISMISSAL INSTRUCTIONS WITH VERBAL UNDERSTANDING. PT IS GIVEN SCRIPT, PT LEAVES AMBULatORY TO ED REGISTRATION DESK
--- NOTE | 2017-01-10 08:01 | DI ---
Indication: ITS.REASON: Left lower quadrant abdominal pain PROCEDURE: CT ABD/PELVIS W/CONTRAST ONLY: Encounter: Initial Comparison: None Technique: Axial CT images were performed through the abdomen and pelvis after the administration of intravenous contrast. Coronal and sagittal two-dimensional reformats. Automated Exposure Control and Iterative Reconstruction dose reducing techniques were utilized. Contrast: Omnipaque 300 100 mL Findings: The lung bases are clear. The liver appears normal. The gallbladder, spleen, pancreas and adrenal glands are within normal limits. Kidneys are normal. No abdominal or pelvic adenopathy. Bladder is normal. Uterus and right ovary normal. Possible hemorrhagic cyst in the left ovary versus corpus luteum measuring 1.5 cm in diameter. No free fluid or evidence of a bowel obstruction. The appendix is normal. Bone windows are within normal limits. Impression: Possible left ovarian hemorrhagic cyst. Otherwise, no acute disease process seen in the abdomen or pelvis. There is a preliminary report by [employer]. .
--- NOTE | 2017-01-10 08:09 | DI ---
Indication: ITS.REASON: pain PROCEDURE: US PELVIC NON OB W/TRANS VAG: Encounter: Initial Comparison: CT abdomen and pelvis from the same date FINDINGS: Transvaginal and transabdominal pelvic imaging was performed. The uterus measures 7.7 x 3.5 x 5.4 cm. The parenchyma is homogeneous without fibroids. The endometrial stripe measures 13 mm in thickness. There is no evidence of focal endometrial mass. Nabothian cysts. Both ovaries are identified and normal in appearance. The right ovary measures 1.9 x 1.8 x 1.6 cm. The left ovary measures 2 x 2.6 x 2 cm. There are no abnormal adnexal masses detected. Normal Doppler flow to both ovaries. IMPRESSION: Unremarkable pelvic sonogram. The left ovarian lesion seen by CT is not definitely confirmed by ultrasound. There is a preliminary report by virtual radiologic. .
== END 2017-01-10 04:30 | disposition home or self-care (01) ==
LOC: ED 22:45
DX: N83.202 Unspecified ovarian cyst, left side (principal)
CPT/HCPCS: 74177; 76830; 76856; 80053; 81003; 81025; 83690; 85025; 87070; 87205; 87210; 87220; 87491; 87591; 96361; 96374; 96375; 99284; J2405; J7030; J7050; Q9967

== ENCOUNTER 2017-01-22 11:04 | Emergency (ER) | payer MEDICAID ==
[~2017-01-22] VITALS: Ht 152.4 cm; Wt 92.0 kg
[~2017-01-22 11:04] MED LIST changes: +HYDR-4246 PO; +NAPR500T PO; +ONDA4TAB7 PO
[2017-01-22 11:05] VITALS: TEMP 98.3; Ht 152.4 cm; Wt 92.0 kg
--- OUTSIDE RECORDS SUMMARY | 2017-01-22 11:08 | XMS REPORT | Continuity of Care Document ---
Author Author [facility] Organization [facility] Address Unknown Phone Unavailable Care Team Providers Care Clinical Psychiatrist Name Role Phone TONY HESS DO Primary Care Physician [phone] Insurance Providers Guarantor Edilsonjuan danielMargarita Address [address] [phone] Email [email or web address] Payer [facility] Policy Number [id number] Subscriber's Name Margarita Mata Relationship 18 Self Effective Date 16 Expiration Date 17 Advance Directives Directive Response Recorded Date/Time Advanced Directives Type None 01/09/17 11:30pm Chief Complaint and Reason for Visit Chief Complaint Abdominal Pain Reason for Visit N83.202 Problems Active Problems Medical Problem Onset Date [...] Migraine Unknown Migraine Unknown Migraine headache Unknown N83.202 Unknown Pharyngitis Unknown Seizure disorder Unknown Tobacco [...] Mg Tablet 20 Mg Oral Daily 05/08/16 Hydrocodone/Acetaminophen ([place] 5-325 Tablet) 5-325 Tablet 1 Tab Oral Every 4 Hours as needed for Pain 3 Days 18 Tablet 01/10/17 Ibuprofen 800 Mg Tablet 1 Tab Oral Every 8 Hours as needed for Pain 12/27/16 Lurasidone Hcl (Latuda) 40 Mg Tablet 40 Mg Oral Bedtime 10/21/16 Naproxen (Naprosyn) 500 Mg Tablet 1 Tab Oral Twice A Day as needed for Pain 10 Days 20 Tablet 01/10/17 Ondansetron (Zofran Odt) 4 Mg Tab.rapdis 4 Mg Oral Every 4 Hours as needed for Nausea &/Or Vomiting 3 Days 18 Tablet 01/10/17 Tolnaftate (Lamisil Af) 113 Gm Powder 1 [...] Daily for Acosta/Naus 12/10/16 Discontinued Vitamin C/Biotin (Msfl-Mrde-Fefas Gummies) 1 Each Tab.chew, 2 Tab Oral Daily 10/21/16 Discontinued Social History Social History Problem Response Recorded Date/Time Onset Date Status Hx Substance Use Y 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 Plan of Care Discharge Date 01/10/17 4:30am Disposition 01 DISCHARGED HOME, SELF-CARE Condition at Discharge Improved Instructions/Education Provided Ovarian Cyst (DC) Prescriptions See Medication Section Referrals TONY HESS DO Order Date: 2 Days Address: [address] [address] Note: Care Plan and Goals Physician Care Plan Problem: Ovarian Cyst Goal: Follow up with primary care provider Instructions: Take medications and follow care plan as discussed/written Functional Status No functional status results. Allergies, Adverse Reactions, Alerts Allergen Type Severity Reaction Status Last Updated NKDA Allergy Unknown Active 01/09/17 Immunizations Query Response on File Recorded Date/Time Hx Influenza Vaccination Y UNKNOWN 04/02/15 7:34pm Hx Tetanus, Diptheria, Pertussis Y 200904/02/15 7:34pm Hx Influenza Vaccination Y UNKNOWN 04/02/15 7:34pm Hx Tetanus, Diptheria, Pertussis Y 200904/02/15 7:34pm Influenza Vaccine Hx 06/201512/27/16 10:48pm Vital Signs Acute Vital Signs Vital Response Date/Time Temperature (Fahrenheit) 98.0 deg F (96.8 - 99.1) 01/10/2017 4:30am Temperature (Calculated Celsius) 36.43228 degrees C (36.0 - 37.3) 01/10/2017 4:30am Pulse Rate (adult) 70 bpm (60 - 100) 01/10/2017 4:30am Respiratory Rate 16 breaths/min (10 - 20) 01/10/2017 4:30am O2 Sat by Pulse Oximetry 98 % (90 - 100) 01/10/2017 4:30am Blood Pressure 107/58 mm Hg 01/10/2017 4:30am Height (Feet) 5 feet 01/10/2017 12:32am Height (Inches) 0 inches 01/10/2017 12:32am Weight (Kilograms) 90.600 kg 01/10/2017 12:32am Body Mass Index (BMI) 39.0 01/10/2017 12:32am Results Laboratory Results Test Name Result Units Flags Reference Collection Date/Time Result Date/ Time Comments White Blood Count 12.5 T/MM3 H 4.5-11.0 01/10/2017 12:24am 01/10/2017 12 :45am Red Blood Count 4.93 M/MM3 4.00-5.20 01/10/2017 12:24am 01/10/2017 12: 45am Hemoglobin 14.3 GM/DL 12-16 01/10/2017 12:24am 01/10/2017 12:45am Hematocrit 42.6 % 36-46 01/10/2017 12:01/10/2017 12:45am Mean Corpuscular Volume 86.4 UM3 80-100 01/10/2017 12:01/10/2017 12:45am Mean Corpuscular Hemoglobin 29.0 UUG 26-34 01/10/2017 12:2016 12:45am Mean Corpuscular Hemoglobin Concent 33.6 GM/DL 31-37 01/10/2017 12:01/10/2017 12:45am RDW Standard Deviation 41.8 FL 36.9-50.2 01/10/2017 12:01/10/2017 12:45am Platelet Count 126 T/MM3 L 130-400 01/10/2017 12:01/10/2017 12: 45am Mean Platelet Volume 10.9 UM3 9.4-12.4 01/10/2017 12:01/10/2017 12 :45am Neutrophils (%) (Auto) 63.6 % 33-66 01/10/2017 12:01/10/2017 12: 45am Lymphocytes (%) (Auto) 29.1 % 23-45 01/10/2017 12:01/10/2017 12: 45am Monocytes (%) (Auto) 5.5 % 0-9.0 01/10/2017 12:01/10/2017 12:45am Eosinophils (%) (Auto) 1.3 % 0-4 01/10/2017 12:01/10/2017 12:45am Basophils (%) (Auto) 0.2 % 0-2 01/10/2017 12:01/10/2017 12:45am Immature Granulocyte % (Auto) 0.3 % 0.0-0.5 01/10/2017 12:2016 12:45am Absolute Neutrophils (auto) 7.9 T/MM3 H 1.8-7.7 01/10/2017 12:01/10 12:45am Absolute Lymphocytes (auto) 3.6 T/MM3 1-4.8 01/10/2017 12:2016 12:45am Absolute Monocytes (auto) 0.7 T/MM3 0-0.8 01/10/2017 12:2016 12:45am Absolute Eosinophils (auto) 0.2 T/MM3 0-0.5 01/10/2017 12:24am 2016 12:45am Absolute Basophils (auto) 0.0 T/MM3 0-0.2 01/10/2017 12:242016 12:45am Absolute Immature Granulocyte (auto 0.04 T/MM3 H 0.00-0.03 01/10/2017 12: 2401/10/2017 12:45am Icterus Index < 2 0-7 01/10/2017 12:2401/10/2017 12:54am Chemistry Specimen Hemolysis 27 H 0-25 01/10/2017 12:2401/10/2017 12:54am 26-70: Specimen Exhibited Slight Hemolysis - can falsely elevate K (Potassium) and Urine Protein. Turbidity < 20 0-20 01/10/2017 12:24am 01/10/2017 12:54am Sodium Level 146 MEQ/L H 134-144 01/10/2017 12:2401/10/2017 12:54am Potassium Level 3.8 MEQ/L 3.6-5 01/10/2017 12:24am 01/10/2017 12:54am Chloride Level 110 MEQ/L H 98-107 01/10/2017 12:2401/10/2017 12:54am Carbon Dioxide Level 22 MEQ/L 22-30 01/10/2017 12:2401/10/2017 12: 54am Anion Gap 14 MEQ/L 5-15 01/10/2017 12:24am 01/10/2017 12:54am Blood Urea Nitrogen 15.0 MG/DL 7-17 01/10/2017 12:2401/10/2017 12: 54am Creatinine 0.9 MG/DL 0.7-1.2 01/10/2017 12:2401/10/2017 12:54am BUN/Creatinine Ratio 17 RATIO 6-26 01/10/2017 12:2401/10/2017 12: 54am Glomerular Filtration Rate Calc 72 01/10/2017 12:2401/10/2017 12 :54am Glucose Level 91 MG/DL 65-110 01/10/2017 12:2401/10/2017 12:54am Calculated Osmolality 282 MOSM/KG H 261-280 01/10/2017 12:24am 2016 12:54am Calcium Level 9.2 MG/DL 8.4-10.2 01/10/2017 12:24am 01/10/2017 12:54am Total Bilirubin 0.40 MG/DL 0.20-1.30 01/10/2017 12:2401/10/2017 12: 54am Alkaline Phosphatase 98 U/L 38-126 01/10/2017 12:24am 01/10/2017 12: 54am Total Protein 7.3 G/DL 6.3-8.2 01/10/2017 12:24am 01/10/2017 12:54am Albumin 4.0 G/DL 3.5-5.0 01/10/2017 12:24am 01/10/2017 12:54am Globulin 3.3 G/DL 2.4-3.6 01/10/2017 12:24am 01/10/2017 12:54am Albumin/Globulin Ratio 1.2 RATIO 1.1-2.2 01/10/2017 12:24am 01/10/2017 12:54am Aspartate Amino Transf (AST/SGOT) 24 U/L 14-36 01/10/2017 12:24am 01/10 12:54am Alanine Aminotransferase (ALT/SGPT) 30 U/L 9-52 01/10/2017 12:24am 12:54am Lipase 119 U/L 23-300 01/10/2017 12:24am 01/10/2017 12:54am N. gonorrhoeae DNA Specimen Source CERVICAL/VAGINAL 01/10/2017 12: 54am 01/10/2017 3:45am Urine Collection Type CLEANCATCH-MIDSTREAM 01/10/2017 12:2401/10 12:35am Urine Color YELLOW YELLOW 01/10/2017 12:2401/10/2017 12:35am Urine Turbidity SL CLOUDY CLEAR 01/10/2017 12:24am 01/10/2017 12: 35am Urine Specific [place] >=1.030 H 1.015-1.025 01/10/2017 12:24am 2016 12:35am Urine pH 5.0 5.0-8.0 01/10/2017 12:24am 01/10/2017 12:35am Urine Leukocyte Esterase NEGATIVE NEGATIVE 01/10/2017 12:24am 2016 12:35am Urine Nitrite NEGATIVE NEGATIVE 01/10/2017 12:24am 01/10/2017 12: 35am Urine Protein NEGATIVE NEGATIVE 01/10/2017 12:24am 01/10/2017 12: 35am Urine Glucose (UA) NEGATIVE NEGATIVE 01/10/2017 12:24am 01/10/2017 12 :35am Urine Ketones NEGATIVE NEGATIVE 01/10/2017 12:24am 01/10/2017 12: 35am Urine Urobilinogen 0.2 EU/DL NORMAL 01/10/2017 12:24am 01/10/2017 12: 35am Urine Bilirubin NEGATIVE NEGATIVE 01/10/2017 12:24am 01/10/2017 12: 35am Urine Blood NEGATIVE NEGATIVE 01/10/2017 12:24am 01/10/2017 12:35am Urinalysis Comment MICROSCOPIC NOT IND. 01/10/2017 12:24am 2016 12:35am Procedures Procedure Status Date Provider(s) Ther/proph/diag inj sc/im Completed 10/21/16 Ther/proph/diag inj sc/im Completed 10/21/16 Ther/proph/diag inj sc/im Completed 10/21/16 Emergency dept visit Completed 10/21/16 160409"INJECTION, KETOROLAC TROMETHAMINE, PER 15 MG" Completed 10/21/16 759986"INJECTION, LORAZEPAM, 2 MG" Completed 10/21/16 [id number] SELF ADMINISTERED) Completed 10/21/16 Mri brain stem w/o & w/dye Completed 10/31/16 GADAVIST 10ML SDV - Contrast,Gadavist 10ml Completed 10/31/16 Eeg awake and drowsy Completed 11/02/16 Ther/proph/diag inj sc/im Completed 12/10/16 Ther/proph/diag inj sc/im Completed 12/10/16 Emergency dept visit Completed 12/10/16 434194"INJECTION, PROCHLORPERAZINE, UP TO 10 MG" Completed 12/10/16 237010"INJECTION, HYDROMORPHONE, UP TO 4 MG" Completed 12/10/16 262023"INJECTION, KETOROLAC TROMETHAMINE, PER 15 MG" Completed 12/10/16 Ther/proph/diag inj sc/im Completed 12/27/16 Ther/proph/diag inj sc/im Completed 12/27/16 Emergency dept visit Completed 12/27/16 [id number]"INJECTION, KETOROLAC TROMETHAMINE, PER 15 MG" Completed 12/27/16 523893"INJECTION, ORPHENADRINE CITRATE, UP TO 60 MG" Completed 12/27/16 Encounters Encounter Location Arrival/Admit Date Discharge/Depart Date Attending Provider Departed Emergency Room [facility] 01/09/17 10:45pm 01/10/17 4: 30am FRANCISCO OLIVAREZ DO Departed Emergency Room [facility] 12/27/16 10:28pm 12/28/16 12: 30am IVAN RO DO Departed Emergency Room [facility] 12/10/16 9:58pm 12/10/16 11: 27pm GOGO BENITEZ MD Registered Clinic [facility] 11/02/16 10:53am ANNA MARIE BYRD MD Registered Clinic [facility] 10/31/16 7:29am ANNA MARIE BYRD MD Departed Emergency Room [facility] 10/21/16 7:19pm 10/21/16 10: 05pm IVAN RO DO Recent Diagnosis
[2017-01-22] MEDS ORDERED: TOPI100T43 PO (11:21)
[2017-01-22] MEDS ORDERED: NAPR500T3 PO (11:21)
[2017-01-22] MEDS ORDERED: ALBU8.5H INH (11:21)
--- NOTE | 2017-01-22 12:03 | NUR ---
PROVIDER N NOLD HIDE SPLITTER AT BEDSIDE
--- NOTE | 2017-01-22 12:10 | ERPDOC ---
Departure Disposition Decision Date: Jan 22, 2017 Disposition Decision Time: 12:10 Disposition: 01 DISCHARGED HOME, SELF-CARE Impression Impression Impression: Primary Impression: Tick bite Encounter type: initial encounter Qualified Codes: W57.XXXA - Bitten or stung by nonvenomous insect and other nonvenomous arthropods, initial encounter Severity: Moderate Condition: Stable Seen By: Mid-level only Referrals: TONY HESS DO (PCP) Patient Instructions: Tick Bite (ED) Problems/Meds/Labs Reviewed?: Yes Medications reviewed and manag: Yes Additional Instructions: May apply some Benadryl or Cortisone cream to the area to help with the redness and swelling and itching. If you have any fever above 101 or generalized rash then return to ER or follow up with your primary care provider. Follow up care ordered?: Yes Mental Status: Alert, Oriented HPI - Skin General General Chief Complaint: Skin Rash/Abscess Stated Complaint: BUG BITE ON R CHEST Time Seen by Provider: 12:01 Source: patient Exam Limitations: no limitations HPI - Skin General Initial Comments She found a tick on the right breast 3 days ago. She did remove the tick at that time. Has had a small scab and itching and some burning with palpation so she wanted to get the site looked at. She denies any fever/chills, nausea/ vomiting, or any other symptoms. Has not been applying any cream/ointment to the area for the itching. Occurred At: home Onset: Gradual Duration: other (For the last 3 days) Severity: moderate Location: torso (right lateral breast) Possible Cause: insect bite Associated Symptoms: other (itching), DENIES: blisters, change in skin texture , edema, fever, flushing, headache, hives, jaundice, malaise, nasal congestion, numbness, pallor, paresthesia, petechiae, rash, sore throat, swelling/mass/lumps , tingling Hx of Similar Symptoms: No Allergies: Coded Allergies: NKDA (Verified Allergy, Unknown, 01/22/17) Past History Past Medical History ENMT: dental problems Neurological: migraines, seizures Psychological: bipolar, depression Surgical History General: other Reproductive/: , tubal ligation Family History Family PMH: FOUND: other Vaccines Hx Influenza Vaccination: Yes (UNKNOWN ) Hx Tetanus, Diptheria, Pertuss: Yes (2009) Social History Smoking Status: Never smoker Does patient use chewing tobac: No Second Hand Exposure: No Substance Use Type: does not use Alcohol Intake: none Sexuality: male partner Review of Systems Constitutional Constitutional: DENIES: chills, dizziness, fatigue, fever, weakness Cardiovascular Cardiac: DENIES: chest pain, orthopnea Rhythm/Rate: DENIES: irregular beat, palpitations Pulmonary Respiratory: DENIES: cough, dyspnea, sputum GI Upper Abdomen: DENIES: nausea, pain, vomiting Lower Abdomen: DENIES: constipation, diarrhea, pain Integumentary Skin: lesion (on right breast), DENIES: rash Neurological General: DENIES: numbness, tingling, weakness Physical Exam General General Nourishment: well nourished, well developed, appears stated age, no acute distress, adult General Body Habitus: well groomed Vitals and Pain First Documented Vital Signs Date Time Temp Pulse Resp B/P Pulse Ox O2 Delivery O2 Flow Rate FiO2 01/22/17 11:05 98.3 89 14 137/83 98 Room Air Weight: Kilograms: 92.000 Height (feet): 5 Height (inches): 0 Triage Pain Scale: RN VS reviewed by Provider: Yes Normal Exams: ENMT: No facial trauma, nasal exudates, pharyngeal erythema, or exudates are noted Neck: Full range of motion, without adenopathy, JVD, bruits or thyromegaly Chest/Resp: Clear all cortez, with good airflow, and symmetry bilaterally CV: Regular rate and rhythm, without murmur or gallop, Pulses 2+ all extremities, capillary refill, <2 seconds all ext., no pedal edema noted Abdomen: Bowel sounds positive, soft, non-tender, non-distended, no hepatosplenomegaly, masses or bruits noted Lymphatic: No lymphadenopathy, or lymphedema noted Musculoskeletal: No tenderness, or deformity noted, good range of motion, all extremities Neurologic: Patient is alert, and oriented Psychiatric: Patient exhibits, appropriate attention, emotion and affect Integumentary (brief) Integumentary Brief: FOUND: lesions (She has one small scab on the right lateral breast with some mild surrounding erythema. No induration or fluctance noted. No active drainage. No rash or skin irritation noted otherwise. ) Differential Diagnoses Considering: Abscess, Cellulitis, Contact Dermatitis, Lyme's Disease, [place] Spotted Fe, Insect Sting Progress Progress Progress Will have her continue to monitor the area for resolution of the bite. May apply Benadryl or Cortisone cream to the area to help with itching. I did advise that if she has any generalized rash or fever above 101 to return to ER or follow up with her PCP. BARBARA MOBLEY APRN Jan 22, 2017 12:10
[2017-01-22 12:15] VITALS: BP 106/70; PULSE 66; RESP 19; O2SAT 99
== END 2017-01-22 12:15 | disposition home or self-care (01) ==
LOC: ED 11:04
DX: S20.161A Insect bite (nonvenomous) of breast, right breast, initial encounter (principal); W57.XXXA Bitten or stung by nonvenomous insect and other nonvenomous arthropods, initial encounter; Y93.9 Activity, unspecified; Y92.009 Unspecified place in unspecified non-institutional (private) residence as the place of occurrence of the external cause; Y99.8 Other external cause status

== ENCOUNTER → 2017-01-27 | Outpatient (CLI) | payer MEDICAID ==
[~2017-01-27] MED LIST changes: -HYDR-4246 PO; -NAPR500T PO; +NAPR500T3 PO; -ONDA4TAB7 PO; +TOPI100T43 PO; -TOPI50TA25 PO; -[UNRECOGNIZED DRUG - CODE] TOP
--- NOTE | 2017-01-27 14:33 | DI ---
Indication: ITS.REASON: N83.209 Unspecified ovarian cyst, unspecified side PROCEDURE: US PELVIC NON OB W/TRANS VAG: Encounter: Initial Comparison: Pelvic ultrasound dated January 10, [address] abdomen and pelvis dated January 10, 2017 FINDINGS: Transvaginal and transabdominal pelvic imaging was performed. The uterine parenchyma is homogeneous without fibroids. The endometrial stripe measures 4 mm in thickness. There is no evidence of focal endometrial mass. Both ovaries are identified and normal in appearance. The right ovary measures 2.2 x 2 x 1.8 cm. The left ovary measures 1.5 x 2.2 x 1.8 cm. There are no abnormal adnexal masses detected. IMPRESSION: Normal pelvic sonogram. .
== END ==
LOC: IMA 12:41
PROVIDERS: ATTEND Family Medicine
DX: Z01.89 Encounter for other specified special examinations (principal)